=== PATIENT | male | born 1995 | race Caucasian/White ===

== ENCOUNTER 2020-12-26 20:34 | Emergency (ER) | payer OTHER | END 2020-12-26 22:25 | disposition left against medical advice (07) | LOC: ER1 20:34 | DX: Z53.21 Procedure and treatment not carried out due to patient leaving prior to being seen by health care provider (principal) ==

== ENCOUNTER 2021-03-16 16:51 | Emergency (ER) | payer OTHER | END 2021-03-16 19:10 | disposition home or self-care (01) | LOC: ER1 16:51 | DX: R06.02 Shortness of breath (principal); R05 Cough; F17.200 Nicotine dependence, unspecified, uncomplicated | CPT/HCPCS: 99284 ==